=== PATIENT | male | born 1960 | race Two or more races ===

== ENCOUNTER 2023-05-06 10:56 | Emergency (ER) | payer OTHER ==
[~2023-05-06] VITALS: Ht 165.1 cm; Wt 70.3 kg
[2023-05-06] MEDS ORDERED: IBUP-1955 PO (12:02)
[2023-05-06] MEDS ORDERED: HYDR-4303 PO (12:02)
[2023-05-06] MEDS ORDERED: NALO4SPR BNOSTRILS (12:03)
[2023-05-06] MEDS ORDERED: IBUP-1957 PO (12:34)
[2023-05-06 12:36] VITALS: BP 146/84; TEMP 98; O2SAT 98
== END 2023-05-06 12:37 | disposition home or self-care (01) ==
LOC: ER 10:56
DX: S82.855A Nondisplaced trimalleolar fracture of left lower leg, initial encounter for closed fracture (principal); Z60.2 Problems related to living alone; W11.XXXA Fall on and from ladder, initial encounter; Y93.89 Activity, other specified; Y92.89 Other specified places as the place of occurrence of the external cause; Y99.8 Other external cause status
CPT/HCPCS: 73610-TC